=== PATIENT | male | born 1950 | race Caucasian/White ===

== ENCOUNTER 2021-11-02 19:07 | Emergency (ER) | payer MEDICARE, OTHER ==
[~2021-11-02] VITALS: Ht 177.8 cm; Wt 129.3 kg
[2021-11-02] MEDS ORDERED: ATOR10TA PO (19:18)
[2021-11-02] MEDS ORDERED: LISI10TA29 PO (19:18)
[2021-11-02] MEDS ORDERED: METF-440 PO (19:18)
--- NOTE | 2021-11-02 19:20 | NUR ---
Recieved thorough report from [facility] using SBAR method. Pt has just arrived via [facility] after having a very brief episode of abd pain and nausea x approx 15 min. Pt did not want to come into hospital but was urged by because he recently had a stent placement and she thought there might be something wrong with the new stent. Pt arrived pain free and with issue completely resolved and wanting to go home. Pt placed in room ED3 in pos of comfort. VSS, PE WNnL, strong and equal manager summer strength bilat. strong and reg pulses x 4ext. AAOx4, with good color and temp. no s/sx of distress present.
--- NOTE | 2021-11-02 19:33 | NUR ---
EDMD at bedside to eval pt. Pt is pain free and denies any sob, n/v or discomfort. Pt VSS, PE wnl. EDMD did not order any meds just some lab work and diagnostics like XR and CTA. Pt patiently awaiting transport to CT.
[2021-11-02 19:42] LABS: HEMATOCRIT 42.9 % (36.7-47.1); MEAN CORPUSCULAR VOLUME 102.2 fL (73.0-96.2); PLATELET COUNT (AUTO) 260 K/uL (152-348)
--- NOTE | 2021-11-02 19:45 | NUR ---
XRtech at bedside for PCXR.
[2021-11-02 19:52] LABS: CREATININE 0.9 mg/dL (0.6-1.3)
[2021-11-02] MEDS ORDERED: SWABABLE VALVE TRANSFER SET EA MC ONE (20:18)
[2021-11-02] MEDS ORDERED: IOHEXOL 350 100 ML INFUS..BTL ONE (20:18)
[2021-11-02] MEDS ORDERED: IV NORMAL SALINE 250 ML IV ONE (20:18)
--- NOTE | 2021-11-02 22:30 | NUR ---
Pt taken to down to CT by porcelain technician.
--- NOTE | 2021-11-02 22:55 | NUR ---
Pt back in room, reconnected to bedside monitor and fresh set of VS obtained. VSS, pt is painfree with no complaints, hungry asking for dinner. Pt told that CTA must result before serving him dinner. Pt agreed.
--- NOTE | 2021-11-02 23:40 | NUR ---
Pt given dinner tray after getting the ok from EDMD. Pt eating dinner currently, all needs met, vss, pt stable and steady gait, wanting to sign out AMA afte being told that he will be admitted for observation.
--- NOTE | 2021-11-03 00:10 | NUR ---
Pt signed out AMA after finishing dinner and speaking to the EDMD and ChargeRN. VSS, PE WNL, pt in no s/sx of distress and aware of the risks of going home against med advise. Pt walked out of dept with steady gait and called taxi before hand. No s/sx of distress present.
[2021-11-03 04:18] VITALS: BP 124/68
== END 2021-11-03 00:30 | disposition left against medical advice (07) ==
LOC: ER 19:13
DX: R07.9 Chest pain, unspecified (principal); R10.13 Epigastric pain; E11.9 Type 2 diabetes mellitus without complications; Z95.5 Presence of coronary angioplasty implant and graft; Z79.84 Long term (current) use of oral hypoglycemic drugs; Z79.899 Other long term (current) drug therapy; Z53.29 Procedure and treatment not carried out because of patient's decision for other reasons
CPT/HCPCS: 36415; 71045; 71275; 74174; 80048; 84484; 85025; 93005; 99285; Q9967; 70030-TC; A4663; J7050